=== PATIENT | male | born 1980 | race Caucasian/White ===

== ENCOUNTER 2016-10-30 05:42 | Emergency (ER) | payer SELFPAY ==
--- NOTE | 2016-10-30 07:15 | DIAGNOSTIC IMAGING REPORT ---
PROCEDURE: CT HEAD WITHOUT CONTRAST INDICATION: SEIZURE TECHNIQUE: Axial CT images were acquired through the head. Coronal and sagittal reformations were created. COMPARISON: None. FINDINGS: There is some motion at the base of the brain. No intracranial hemorrhage or extraaxial fluid collections. Ventricles are normal in size, shape and position. There is no mass, mass effect or midline shift. The manning-white matter differentiation is normal. There is no edema. The calvarium is intact. The paranasal sinuses and mastoid air cells are normally aerated. The extracranial soft tissues and orbits are normal. IMPRESSION: 1. No CT evidence of acute intracranial process. 2. Findings discussed with Dr. Peres at 07:[address] scans at this facility use dose modulation, iterative reconstruction, and/or weight-based dosing when appropriate to reduce radiation dose to as low as reasonably achievable.
--- NOTE | 2016-10-30 07:21 | ED CLINICAL REPORT ---
Clinical Report - Physicians/Mid Levels [facility] [address] [place] [address] 10/30/2016 5:44 Patient: JOANIE REYES II Time Seen: 05:51. Arrived- By private vehicle. Historian- patient and significant other. HISTORY OF PRESENT ILLNESS Chief Complaint: SEIZURE. This occurred just prior to arrival first noted about 3 - 4 months ago. Is no longer seizing. He has recovered. Not post-ictal in the emergency department. Seizure was witnessed. (significant other). Experienced repeated seizures (up to 5 seizures / day for 3 - 4 months according to his significant other). Seizure activity was brief and lasted seconds. Generalized motor activity observed (per his significant other). No incontinence, apnea noted, speech difficulty post-ictally, weakness post-ictally or numbness post-ictally. No headache post-ictally. Not obtunded post-ictally. Post-ictally has had confusion. No injuries noted. Has not recently been ill. There has been recent sleep deprivation. No alcohol recently. Seizure-like activity first noted by his girlfriend about 3 months ago. Pt admits to using Heroin and Meth. Per his significant other, there does not appear to be a temporal relationship between his illicit substance use / doses and the apparent seizures. Similar symptoms previously: Many times. Recent medical care: Not recently seen/assessed. REVIEW OF SYSTEMS No fever, chest pain, palpitations, difficulty breathing or sore throat. No abdominal pain, nausea, diarrhea, black stools or difficulty with urination. No skin rash, vomiting or bloody stools. All systems otherwise negative, except as recorded above. PAST HISTORY ( Problems: Anxiety Reaction. Depression. Asthma. Chronic Back Pain. Surgeries: Hand surgery.). Medications: None. Allergies: No Known Drug Allergy. SOCIAL HISTORY Smoker- current status unknown. Alcohol use. History of IV drug use: heroin, methamphetamines. He is homeless. ADDITIONAL NOTES The nursing notes have been reviewed. PHYSICAL EXAM Vital Signs: 10/30/2016 05:49 BP: 129/82. HR: 78. RR: 16. O2 saturation: 100%. Temp: 98.3 F. Pain level now: 0/10. Appearance: Alert. No acute distress. Eyes: Pupils equal, round and reactive to light. No nystagmus. ENT: Normal ENT inspection. Moist mucous membranes. Pharynx normal. Neck: Normal inspection. Neck supple. CVS: Normal heart rate and rhythm. Heart sounds normal. Pulses normal. Respiratory: No respiratory distress. Breath sounds normal. Abdomen: Soft and nontender. Back: Normal inspection. Skin: Skin warm and dry. Normal skin color. Normal skin turgor. Extremities: Extremities exhibit normal ROM. No lower extremity edema. Neuro: Alert. Oriented X 3. No seizure activity. Verbal response is not abnormal. Response to pain is not abnormal. No aphasia or dysphasia. Cranial nerves normal (as tested). No cerebellar findings. No motor deficit. No sensory deficit. Reflexes normal. Reflex exam: right biceps 2+, left biceps 2+, right patellar 2+, left patellar 2+, right Achilles 2+ and left Achilles 2+. LABS, X-RAYS, AND EKG EKG: EKG time: (06:04). Normal sinus rhythm. Rate: 70. Normal P waves. Normal GREGORIO. Normal QRS complex. Normal axis. Normal ST and T waves. The study has been interpreted contemporaneously by me. The EKG appears to be a good tracing. Rhythm Strip #1: Normal sinus rhythm. Regular rhythm. Narrow QRS complexes. No ectopy. CT Head: Normal study. No acute changes. No bony abnormalities, no hemorrhage, no intracranial mass, no midline shift and no hydrocephalus. No atrophy. Head CT performed without contrast. The study was independently viewed by me, interpreted by the radiologist and discussed with the radiologist. Laboratory Tests: CBC w Diff: (ANIA: 10/30/2016 05:58) ( MsgRcvd 10/30/2016 06:16) Final results Test Result Flag Units (Reference) WHITE BLOOD COUNT 7.6 K/uL (4.5-11.5) RED BLOOD COUNT 5.01 M/uL (4.50-5.90) HEMOGLOBIN 14.1 gm/dL (13.5-17.5) HEMATOCRIT 41.9 % (41.0-53.0) MEAN CELL VOLUME 84 fL (80-100) MEAN CORPUSCULAR HGB 28 pg (26-34) MEAN CORPUSCULAR HGB CONC 34 g/dL (31-37) RED CELL DISTRIBUTION WIDTH 15.2 H % (11.6-14.8) PLATELET COUNT 288 K/uL (150-400) NEUTROPHIL % 60.3 % (50-75) LYMPH % 27.5 % (25-40) MONO % 7.8 % (3-14) EOSINOPHIL % 3.2 % (0-4) BASOPHIL % 1.2 % (0-2) PT with INR: (ANIA: 10/30/2016 06:18) ( [facility] 10/30/2016 06:37) Final results Test Result Flag Units (Reference) INR 0.9 (0.8-1.2) Low Intensity Therapy: INR 1.5-2.0 PT range 18.5-23.1Mod.Intensity Therapy: INR 2.0-3.0 PT range 23.1-31.5High Intensity Therapy: INR 2.5-3.5 PT range 27.4-35.5High Intensity Therapy 2: INR 3.0-4.0 PT range 31.5-39.3 D-DIMER QUANTITATIVE 0.28 ug/mLFEU (0.27-0.52) The primary value of this quantitative assay relates toits negative predictive value (i.e. exclusion) of pulmonaryembolism/deep vein thrombosis/DIC.Elevated levels of d-dimer may also occur with:, age, cancer, inflammation, liver disease,post-op, infection, hematoma, coronary disease, peripheralarteriopathy, bleeding disorders and thrombolytic treatment.Results should be correlated with other clinical andradiological data.Testing Methodology: Latex Immunoassay BNP: (ANIA: 10/30/2016 05:58) ( [facility] 10/30/2016 06:33) Final results Test Result Flag Units (Reference) B-TYPE NATRIURETIC PEPTIDE < 5.0 L pg/ml (5-100) CHEM 13 PANEL: (ANIA: 10/30/2016 05:58) ( [facility] 10/30/2016 06:37) Final results Test Result Flag Units (Reference) GLUCOSE 95 mg/dL (70-110) BUN 15 mg/dL (7-18) CREATININE 0.7 mg/dL (0.6-1.3) Estimated GFR >60 mL/min Estimated GFR- >60 mL/min Note: Persistent reduction over 3 months in eGFR<60 mL/min/1.73 m2 defines CKD. Patients with eGFR values>=60 mL/min/1.73 m2 may also have CKD if evidence ofpersistent proteinuria. Additional information may be foundat www.kidney.org. SODIUM 140 mmol/L (136-145) POTASSIUM 4.1 mmol/L (3.5-5.1) CHLORIDE 104 mmol/L (98-107) CARBON DIOXIDE 31 mmol/L (21-32) CALCIUM 9.3 mg/dL (8.5-10.1) TOTAL PROTEIN 8.1 g/dL (6.4-8.2) ALBUMIN 3.7 g/dL (3.3-5.0) BILIRUBIN, TOTAL 0.5 mg/dL (0.0-1.0) ALKALINE PHOSPHATASE 125 H U/L (46-116) AST (SGOT) 30 U/L (15-37) ALT (SGPT) 80 H U/L (12-78) MAGNESIUM 2.1 mg/dL (1.8-2.4) AMYLASE 26 U/L (25-115) CPK 99 U/L (24-260) TROPONIN I <0.05 L ng/mL (0.00-1.5) TROPONIN REFERENCE RANGE:<0.1 NEGATIVE0.1-1.5 INDETERMINANT>1.5 POSITIVE ETHYL ALCOHOL <3 L mg/dL (3-10) THYROID STIMULATING HORMONE 0.824 uIU/mL (0.34-3.74) . Pulse Oximetry: 10/30/2016 05:49 O2 saturation: 100%. (FIO2 - room air). Interpretation: normal. PROGRESS AND PROCEDURES Course of Care: Normal Saline 1 liter IVPB given. Ativan 1mg IVP given. Patient is stable. The patient's symptoms are now gone. Pt may have a new onset seizure disorder. First noted about 4 months prior per S.O. Currently labs and CT are unremarkable. It is possible that his illicit drugs are causing seizures, but may also have episodes of hypoxia / diminished respiratory drive when he uses heroin causing his seizure / seizure-like illness. He has never been evaluated for seizures in the past. He will need a pcp and hopefully expedited neurology work up with EEG. Patient/family counseled. Old ED records reviewed. Disposition: Discharged. Condition: stable and improved. CLINICAL IMPRESSION New onset generalized seizure associated with drugs. History of poorly controlled epilepsy. Chronic substance abuse- tobacco (cigarettes), marijuana, heroin, methamphetamines with perceptual disturbance. Abnormal liver function test: ALT/SGPT and alkaline phosphatase. INSTRUCTIONS Drink plenty of fluids. Warnings: Further evaluation is necessary in order to recheck abnormal lab, obtain test results, conduct further tests and assess the possibility of serious illness. It is very important to follow up with a physician. SEDATIVE MEDICATION: You were given sedative medication during your visit. Do not drive or operate dangerous machinery. TAKE SEIZURE MEDICATION INSTRUCTED. GENERAL WARNINGS: Return or contact your physician immediately if your condition worsens or changes unexpectedly, if not improving as expected, or if other problems arise. Prescription Medications: Keppra 500 mg: take 1 tablet orally every 12 hours. Dispense thirty (30). No refills. Substitution is permissible. Follow-up: Follow up with a neurologist- as recommended by your primary care physician. Follow-up with: [facility], , , [address] [place] [address], , [place], ; [facility], , , [facility] [address] [place] [address]; [facility], , [address] [place] [address] Follow up in about two days. Call for the next available appointment. (Electronically signed by Juvenal Peres DO 10/30/2016 8:51)
--- NOTE | 2016-10-30 07:21 | ED CLINICAL REPORT ---
Clinical Report - Physicians/Mid Levels [facility] [address] [place] [address] 10/30/2016 5:44 Patient: JOANIE REYES II Time Seen: 05:51. Arrived- By private vehicle. Historian- patient and significant other. HISTORY OF PRESENT ILLNESS Chief Complaint: SEIZURE. This occurred just prior to arrival first noted about 3 - 4 months ago. Is no longer seizing. He has recovered. Not post-ictal in the emergency department. Seizure was witnessed. (significant other). Experienced repeated seizures (up to 5 seizures / day for 3 - 4 months according to his significant other). Seizure activity was brief and lasted seconds. Generalized motor activity observed (per his significant other). No incontinence, apnea noted, speech difficulty post-ictally, weakness post-ictally or numbness post-ictally. No headache post-ictally. Not obtunded post-ictally. Post-ictally has had confusion. No injuries noted. Has not recently been ill. There has been recent sleep deprivation. No alcohol recently. Seizure-like activity first noted by his girlfriend about 3 months ago. Pt admits to using Heroin and Meth. Per his significant other, there does not appear to be a temporal relationship between his illicit substance use / doses and the apparent seizures. Similar symptoms previously: Many times. Recent medical care: Not recently seen/assessed. REVIEW OF SYSTEMS No fever, chest pain, palpitations, difficulty breathing or sore throat. No abdominal pain, nausea, diarrhea, black stools or difficulty with urination. No skin rash, vomiting or bloody stools. All systems otherwise negative, except as recorded above. PAST HISTORY ( Problems: Anxiety Reaction. Depression. Asthma. Chronic Back Pain. Surgeries: Hand surgery.). Medications: None. Allergies: No Known Drug Allergy. SOCIAL HISTORY Smoker- current status unknown. Alcohol use. History of IV drug use: heroin, methamphetamines. He is homeless. ADDITIONAL NOTES The nursing notes have been reviewed. PHYSICAL EXAM Vital Signs: 10/30/2016 05:49 BP: 129/82. HR: 78. RR: 16. O2 saturation: 100%. Temp: 98.3 F. Pain level now: 0/10. Appearance: Alert. No acute distress. Eyes: Pupils equal, round and reactive to light. No nystagmus. ENT: Normal ENT inspection. Moist mucous membranes. Pharynx normal. Neck: Normal inspection. Neck supple. CVS: Normal heart rate and rhythm. Heart sounds normal. Pulses normal. Respiratory: No respiratory distress. Breath sounds normal. Abdomen: Soft and nontender. Back: Normal inspection. Skin: Skin warm and dry. Normal skin color. Normal skin turgor. Extremities: Extremities exhibit normal ROM. No lower extremity edema. Neuro: Alert. Oriented X 3. No seizure activity. Verbal response is not abnormal. Response to pain is not abnormal. No aphasia or dysphasia. Cranial nerves normal (as tested). No cerebellar findings. No motor deficit. No sensory deficit. Reflexes normal. Reflex exam: right biceps 2+, left biceps 2+, right patellar 2+, left patellar 2+, right Achilles 2+ and left Achilles 2+. LABS, X-RAYS, AND EKG EKG: EKG time: (06:04). Normal sinus rhythm. Rate: 70. Normal P waves. Normal GREGORIO. Normal QRS complex. Normal axis. Normal ST and T waves. The study has been interpreted contemporaneously by me. The EKG appears to be a good tracing. Rhythm Strip #1: Normal sinus rhythm. Regular rhythm. Narrow QRS complexes. No ectopy. CT Head: Normal study. No acute changes. No bony abnormalities, no hemorrhage, no intracranial mass, no midline shift and no hydrocephalus. No atrophy. Head CT performed without contrast. The study was independently viewed by me, interpreted by the radiologist and discussed with the radiologist. Laboratory Tests: CBC w Diff: (ANIA: 10/30/2016 05:58) ( MsgRcvd 10/30/2016 06:16) Final results Test Result Flag Units (Reference) WHITE BLOOD COUNT 7.6 K/uL (4.5-11.5) RED BLOOD COUNT 5.01 M/uL (4.50-5.90) HEMOGLOBIN 14.1 gm/dL (13.5-17.5) HEMATOCRIT 41.9 % (41.0-53.0) MEAN CELL VOLUME 84 fL (80-100) MEAN CORPUSCULAR HGB 28 pg (26-34) MEAN CORPUSCULAR HGB CONC 34 g/dL (31-37) RED CELL DISTRIBUTION WIDTH 15.2 H % (11.6-14.8) PLATELET COUNT 288 K/uL (150-400) NEUTROPHIL % 60.3 % (50-75) LYMPH % 27.5 % (25-40) MONO % 7.8 % (3-14) EOSINOPHIL % 3.2 % (0-4) BASOPHIL % 1.2 % (0-2) PT with INR: (ANIA: 10/30/2016 06:18) ( [facility] 10/30/2016 06:37) Final results Test Result Flag Units (Reference) INR 0.9 (0.8-1.2) Low Intensity Therapy: INR 1.5-2.0 PT range 18.5-23.1Mod.Intensity Therapy: INR 2.0-3.0 PT range 23.1-31.5High Intensity Therapy: INR 2.5-3.5 PT range 27.4-35.5High Intensity Therapy 2: INR 3.0-4.0 PT range 31.5-39.3 D-DIMER QUANTITATIVE 0.28 ug/mLFEU (0.27-0.52) The primary value of this quantitative assay relates toits negative predictive value (i.e. exclusion) of pulmonaryembolism/deep vein thrombosis/DIC.Elevated levels of d-dimer may also occur with:, age, cancer, inflammation, liver disease,post-op, infection, hematoma, coronary disease, peripheralarteriopathy, bleeding disorders and thrombolytic treatment.Results should be correlated with other clinical andradiological data.Testing Methodology: Latex Immunoassay BNP: (ANIA: 10/30/2016 05:58) ( [facility] 10/30/2016 06:33) Final results Test Result Flag Units (Reference) B-TYPE NATRIURETIC PEPTIDE < 5.0 L pg/ml (5-100) CHEM 13 PANEL: (ANIA: 10/30/2016 05:58) ( [facility] 10/30/2016 06:37) Final results Test Result Flag Units (Reference) GLUCOSE 95 mg/dL (70-110) BUN 15 mg/dL (7-18) CREATININE 0.7 mg/dL (0.6-1.3) Estimated GFR >60 mL/min Estimated GFR- >60 mL/min Note: Persistent reduction over 3 months in eGFR<60 mL/min/1.73 m2 defines CKD. Patients with eGFR values>=60 mL/min/1.73 m2 may also have CKD if evidence ofpersistent proteinuria. Additional information may be foundat www.kidney.org. SODIUM 140 mmol/L (136-145) POTASSIUM 4.1 mmol/L (3.5-5.1) CHLORIDE 104 mmol/L (98-107) CARBON DIOXIDE 31 mmol/L (21-32) CALCIUM 9.3 mg/dL (8.5-10.1) TOTAL PROTEIN 8.1 g/dL (6.4-8.2) ALBUMIN 3.7 g/dL (3.3-5.0) BILIRUBIN, TOTAL 0.5 mg/dL (0.0-1.0) ALKALINE PHOSPHATASE 125 H U/L (46-116) AST (SGOT) 30 U/L (15-37) ALT (SGPT) 80 H U/L (12-78) MAGNESIUM 2.1 mg/dL (1.8-2.4) AMYLASE 26 U/L (25-115) CPK 99 U/L (24-260) TROPONIN I <0.05 L ng/mL (0.00-1.5) TROPONIN REFERENCE RANGE:<0.1 NEGATIVE0.1-1.5 INDETERMINANT>1.5 POSITIVE ETHYL ALCOHOL <3 L mg/dL (3-10) THYROID STIMULATING HORMONE 0.824 uIU/mL (0.34-3.74) . Pulse Oximetry: 10/30/2016 05:49 O2 saturation: 100%. (FIO2 - room air). Interpretation: normal. PROGRESS AND PROCEDURES Course of Care: Normal Saline 1 liter IVPB given. Ativan 1mg IVP given. Patient is stable. The patient's symptoms are now gone. Pt may have a new onset seizure disorder. First noted about 4 months prior per S.O. Currently labs and CT are unremarkable. It is possible that his illicit drugs are causing seizures, but may also have episodes of hypoxia / diminished respiratory drive when he uses heroin causing his seizure / seizure-like illness. He has never been evaluated for seizures in the past. He will need a pcp and hopefully expedited neurology work up with EEG. Patient/family counseled. Old ED records reviewed. Disposition: Discharged. Condition: stable and improved. CLINICAL IMPRESSION New onset generalized seizure associated with drugs. History of poorly controlled epilepsy. Chronic substance abuse- tobacco (cigarettes), marijuana, heroin, methamphetamines with perceptual disturbance. Abnormal liver function test: ALT/SGPT and alkaline phosphatase. INSTRUCTIONS Drink plenty of fluids. Warnings: Further evaluation is necessary in order to recheck abnormal lab, obtain test results, conduct further tests and assess the possibility of serious illness. It is very important to follow up with a physician. SEDATIVE MEDICATION: You were given sedative medication during your visit. Do not drive or operate dangerous machinery. TAKE SEIZURE MEDICATION INSTRUCTED. GENERAL WARNINGS: Return or contact your physician immediately if your condition worsens or changes unexpectedly, if not improving as expected, or if other problems arise. Prescription Medications: Keppra 500 mg: take 1 tablet orally every 12 hours. Dispense thirty (30). No refills. Substitution is permissible. Follow-up: Follow up with a neurologist- as recommended by your primary care physician. Follow-up with: [facility], , , [address] [place] [address], , [place], ; [facility], , , [facility] [address] [place] [address]; [facility], , [address] [place] [address] Follow up in about two days. Call for the next available appointment. (Electronically signed by Juvenal Peres DO 10/30/2016 8:51)
--- NOTE | 2016-10-30 07:21 | ED ORDER SUMMARY ---
..... Patient: JOANIE REYES II OrderSheet [facility] VisitID: [id number] [place] [address] 36y, M Registration Date/Time: 10/30/2016 ORDER SHEET Weight: 53.5 kg (stated) Allergies: No Known Drug Allergy GENERAL ORDERS: CT Head wo Cont Urgent (05:55 10/30/2016 PHutchinson DO) (Ack 6:06 CHategekimana) (Ack 6:07 IJurca ER Tech1) (8:42 JSanders R.N.) Brake Operator Sheet Metal (Continuous) (05:56 10/30/2016 PHutchinson DO) (5:59 JRomanelli R.N.) UA-Culture if indicated Urgent (05:56 10/30/2016 PHutchinson DO) (Ack 6:07 CHategekimana) (Ack 6:07 IJurca ER Tech1) (8:43 JSanders R.N.) Cardiac Panel Stat (05:56 10/30/2016 PHutchinson DO) (6:02 JRomanelli R.N.) BNP Urgent (05:56 10/30/2016 PHutchinson DO) (6:02 JRomanelli R.N.) D-Dimer Urgent (05:56 10/30/2016 PHutchinson DO) (6:02 JRomanelli R.N.) Amylase Urgent (05:56 10/30/2016 PHutchinson DO) (6:02 JRomanelli R.N.) PT with INR Urgent (05:56 10/30/2016 PHutchinson DO) (6:03 JRomanelli R.N.) TSH Urgent (05:56 10/30/2016 PHutchinson DO) (6:03 JRomanelli R.N.) Ethyl Alcohol Urgent (05:56 10/30/2016 PHutchinson DO) (6:03 JRomanelli R.N.) Urine Drug Screen Urgent (05:56 10/30/2016 PHutchinson DO) (Ack 6:06 CHategekimana) (Ack 6:07 IJurca ER Tech1) (8:43 JSanders R.N.) Oxygen (2 L/min) (NC) (05:56 10/30/2016 [facility]) (5:59 omanelli R.N.) Pulse oximeter (05:56 10/30/2016 [facility]) (6:02 omanelli R.N.) EKG - ER Stat (05:56 10/30/2016 [facility]) (6:02 omanelli R.N.) Vitals (05:56 10/30/2016 [facility]) (6:02 JRomanelli R.N.) MEDICATION ORDERS: IV FLUIDS: IV NS : initial bolus 1000 mL (1000 mL/hr), then 250 mL/hr for X4 (NOW) (05:56 10/30/2016 [facility]) (Ack 5:56 Janiceier R.N.) (6:02 omanelli R.N.) Ativan IV 1 mg (HIGH ALERT MEDICATION, NOW) (05:56 10/30/2016 [facility]) (Ack 5:56 Brayan R.N.) (6:13 DDavis R.N.) ORDER SHEET NOTES: [Electronically signed by Angela East R.N. (08:49 10/30/2016)] [Electronically signed by Juvenal Peres DO (08:51 10/30/2016)] [Electronically locked/signed by Angela East R.N. (08:49 10/30/2016)]
--- NOTE | 2016-10-30 07:21 | ED NURSING NOTES ---
Clinical Report - Nurses [facility] [address] [place] [address] 10/30/2016 5:44 [id number] Triage time 05:50 Oct 30 2016. Acuity: LEVEL 3. Chief Complaint: POSSIBLE SEIZURE. Alert. MARTINE COMA SCORE: Martine Coma Scale: 15- eyes open spontaneously (4); best verbal response- oriented x 4 (5); best motor response- obeys commands (6). --05:57 Ronnell Foreman R.N. 05:49 10/30/16. BP: 129/82. HR: 78. RR: 16. O2 saturation: 100% on room air. Temp: 98.3 F. Pain level now: 0/10. --05:57 Ronnell Foreman R.N. Weight: 53.5 kg stated. Height/Length: 65 inches Per Patient. BMI: 19.7. --05:53 Ronnell Foreman R.N. Medications None. --05:54 Ronnell Foreman R.N. Allergies No Known Drug Allergy. --05:54 Ronnell Foreman R.N. Medication/allergy information source: the patient. --05:57 Ronnell Foreman R.N. History Arrived by private vehicle. Historian: patient. Accompanied by friend. ( Seizure-like activity first noted by his girlfriend about 3 months ago. Pt admits to using Heroin and Meth..). This occurred just prior to arrival and today. No injuries. Treatment TELEPHONE CLERKS SUPERVISOR: None. PAST MEDICAL HX: Hypertension. Immunizations: up-to-date. SOCIAL HX: Heavy tobacco smoker (cigarette)- less than 1 pack per day. History of drug use: heroin, marijuana. No alcohol use. No infectious disease exposure. ABUSE ASSESSMENT: No report of abuse. FALL RISK ASSESSMENT: Fall risk assessment completed. No fall risk identified. NUTRITIONAL RISK ASSESSMENT: The nutritional risk assessment revealed no deficiencies. FUNCTIONAL ASSESSMENT: Functional assessment: no impairments noted. LEARNING NEEDS ASSESSMENT: The learning needs assessment revealed no barriers. SKIN INTEGRITY ASSESSMENT: Skin integrity risk assessment completed. No skin integrity risk identified. --05:57 Ronnell Foreman R.N. PROBLEMS: Abscess. Skin Rash. Anxiety Reaction. Depression. Immunizations. Asthma. Peptic Ulcer Disease. Chronic Back Pain. --05:55 Ronnell Foreman R.N. Cellulitis [RuleOut]. --05:55 Ronnell Foreman R.N. ADDITIONAL SURGERIES: Hand surgery. --05:55 Ronnell Foreman R.N. Interventions ID band on patient. To treatment room. --05:57 Ronnell Foreman R.N. PHYSICAL ASSESSMENT Ambulatory to room. GENERAL / NEURO / PSYCH: Alert. Oriented X 4. Appears in pain. Speech within normal limits. Patient appears well-nourished. HEENT: No facial asymmetry noted. Mucous membranes are pink. RESPIRATORY: Respirations not labored. CVS: Normal sinus rhythm noted. Capillary refill less than 2 seconds. GI / : Abdomen soft. Bowel sounds within normal limits. SKIN: Skin is warm and dry. Normal skin turgor. --05:57 Ronnell Foreman R.N. NURSING PROGRESS NOTES Patient gowned. Reassurance given. Patient identifiers checked. Call light placed in reach. Side rails up. Bed placed in lowest position. Brakes of bed on. Patient ready for evaluation- chart flagged and ED physician notified. --05:58 Ronnell Foreman R.N. 05:55 10/30/2016 Site #1 started via IV in the left antecubital space with an 20g angiocath, with aseptic technique and good blood return; one attempt. Blood drawn: rainbow set. Labeled in the presence of the patient and sent to the lab. Saline lock flushed with 10 mL saline (start by LANI Riggins). --06:01 Ronnell Foreman R.N. 06:02 10/30/2016 Started bag #1 1000 mL IV Fluids IV NS (Saline); at 1000 mL/hr over 60 minute(s) via site #1 via IV pump. Allergies verified and confirmed 5 rights. IV patency established. IV site checked: no pain, redness, or swelling. IV flushed thoroughly pre- and post-medication administration. --06:02 Ronnell Foreman R.N. EKG time: (0604 AM). EKG was ordered, performed by a tech and shown to the ED physician. --06:05 Lily Nelson 06:11 10/30/2016 Ativan (LORazepam) IVP 1 mg given over 2 minute(s) via site #1. Allergies verified, confirmed 5 rights and sedative warning given to the patient. IV patency established. IV site checked: no pain, redness, or swelling. IV flushed thoroughly pre- and post-medication administration. --06:13 Scott Magana R.N. ( ED DIRECTOR OF CORPORATE STRATEGY tried to wake patient up to get best time and [facility] location to schedule a follow up appointment. Patient did not wake up. Female manager functional in room who identified herself as the girlfriend said "[place]" as best location. [facility] called [facility] on [place] at [place] at 8:07am. Answering service said this was the emergency line and clinic will be open at 9am. Patient given number to call for a follow up appointment.). --08:36 Makayla Altamirano. DISPOSITION / DISCHARGE Condition at departure: improved. No learning barriers present. Discharge instructions provided and reviewed with the spouse. Reviewed medication(s) side effects, precautions and dosing information. Prescription(s) given to the manager functional. Spouse verbalized understanding. Written instructions provided in Slovak. The patient was discharged by the physician. He was discharged home and accompanied by manager functional. He left the Emergency Department in a wheelchair and via bus. Drapery Cutter Machine driving. ( Patient sleeping, aroused with pain. All instructions given to manager functional.). --08:16 Angela East R.N. 08:10 10/30/16. BP: 108/68 (regular adult cuff) taken on the right arm, while lying. HR: 80. RR: 16 (regular). O2 saturation: 95% on room air. Temp: unable to obtain. Pain level now: 0/10. Additional comments: Patient will not open mouth for oral temp. --08:16 Angela East R.N. Departure time: 08:44 Oct 30 2016. --08:44 Angela East R.N. Locked/Released at 10/30/2016 8:49 by Angela East R.N.
--- NOTE | 2016-10-30 07:21 | ED ORDER SUMMARY ---
..... Patient: JOANIE REYES II [facility] VisitID: [id number] [place] [address] 36y, M Registration Date/Time: 10/30/2016 ORDER SHEET Weight: 53.5 kg (stated) Allergies: No Known Drug Allergy GENERAL ORDERS: CT Head wo Cont Urgent (05:55 10/30/2016 PHutchinson DO) (Ack 6:06 CHategekimana) (Ack 6:07 IJurca ER Tech1) (8:42 JSanders R.N.) Hazardous Materials Analyst (Continuous) (05:56 10/30/2016 PHutchinson DO) (5:59 JRomanelli R.N.) UA-Culture if indicated Urgent (05:56 10/30/2016 PHutchinson DO) (Ack 6:07 CHategekimana) (Ack 6:07 IJurca ER Tech1) (8:43 JSanders R.N.) Cardiac Panel Stat (05:56 10/30/2016 PHutchinson DO) (6:02 JRomanelli R.N.) BNP Urgent (05:56 10/30/2016 PHutchinson DO) (6:02 JRomanelli R.N.) D-Dimer Urgent (05:56 10/30/2016 PHutchinson DO) (6:02 JRomanelli R.N.) Amylase Urgent (05:56 10/30/2016 PHutchinson DO) (6:02 JRomanelli R.N.) PT with INR Urgent (05:56 10/30/2016 PHutchinson DO) (6:03 JRomanelli R.N.) TSH Urgent (05:56 10/30/2016 PHutchinson DO) (6:03 JRomanelli R.N.) Ethyl Alcohol Urgent (05:56 10/30/2016 PHutchinson DO) (6:03 JRomanelli R.N.) Urine Drug Screen Urgent (05:56 10/30/2016 PHutchinson DO) (Ack 6:06 CHategekimana) (Ack 6:07 IJurca ER Tech1) (8:43 JSanders R.N.) Oxygen (2 L/min) (NC) (05:56 10/30/2016 [facility]) (5:59 omanelli R.N.) Pulse oximeter (05:56 10/30/2016 [facility]) (6:02 omanelli R.N.) EKG - ER Stat (05:56 10/30/2016 [facility]) (6:02 omanelli R.N.) Vitals (05:56 10/30/2016 [facility]) (6:02 JRomanelli R.N.) MEDICATION ORDERS: IV FLUIDS: IV NS : initial bolus 1000 mL (1000 mL/hr), then 250 mL/hr for X4 (NOW) (05:56 10/30/2016 [facility]) (Ack 5:56 Janiceier R.N.) (6:02 omanelli R.N.) Ativan IV 1 mg (HIGH ALERT MEDICATION, NOW) (05:56 10/30/2016 [facility]) (Ack 5:56 Brayan R.N.) (6:13 DDavis R.N.) ORDER SHEET NOTES: [Electronically signed by Angela East R.N. (08:49 10/30/2016)] [Electronically signed by Juvenal Peres DO (08:51 10/30/2016)] [Electronically locked/signed by Angela East R.N. (08:49 10/30/2016)]
--- NOTE | 2016-10-30 07:21 | ED NURSING NOTES ---
Clinical Report - Nurses [facility] [address] [place] [address] 10/30/2016 5:44 [id number] Triage time 05:50 Oct 30 2016. Acuity: LEVEL 3. Chief Complaint: POSSIBLE SEIZURE. Alert. MARTINE COMA SCORE: Martine Coma Scale: 15- eyes open spontaneously (4); best verbal response- oriented x 4 (5); best motor response- obeys commands (6). --05:57 Ronnell Foreman R.N. 05:49 10/30/16. BP: 129/82. HR: 78. RR: 16. O2 saturation: 100% on room air. Temp: 98.3 F. Pain level now: 0/10. --05:57 Ronnell Foreman R.N. Weight: 53.5 kg stated. Height/Length: 65 inches Per Patient. BMI: 19.7. --05:53 Ronnell Foreman R.N. Medications None. --05:54 Ronnell Foreman R.N. Allergies No Known Drug Allergy. --05:54 Ronnell Foreman R.N. Medication/allergy information source: the patient. --05:57 Ronnell Foreman R.N. History Arrived by private vehicle. Historian: patient. Accompanied by friend. ( Seizure-like activity first noted by his girlfriend about 3 months ago. Pt admits to using Heroin and Meth..). This occurred just prior to arrival and today. No injuries. Treatment SOFTWARE ENGINEERING PROJECT MANAGER: None. PAST MEDICAL HX: Hypertension. Immunizations: up-to-date. SOCIAL HX: Heavy tobacco smoker (cigarette)- less than 1 pack per day. History of drug use: heroin, marijuana. No alcohol use. No infectious disease exposure. ABUSE ASSESSMENT: No report of abuse. FALL RISK ASSESSMENT: Fall risk assessment completed. No fall risk identified. NUTRITIONAL RISK ASSESSMENT: The nutritional risk assessment revealed no deficiencies. FUNCTIONAL ASSESSMENT: Functional assessment: no impairments noted. LEARNING NEEDS ASSESSMENT: The learning needs assessment revealed no barriers. SKIN INTEGRITY ASSESSMENT: Skin integrity risk assessment completed. No skin integrity risk identified. --05:57 Ronnell Foreman R.N. PROBLEMS: Abscess. Skin Rash. Anxiety Reaction. Depression. Immunizations. Asthma. Peptic Ulcer Disease. Chronic Back Pain. --05:55 Ronnell Foreman R.N. Cellulitis [RuleOut]. --05:55 Ronnell Foreman R.N. ADDITIONAL SURGERIES: Hand surgery. --05:55 Ronnell Foreman R.N. Interventions ID band on patient. To treatment room. --05:57 Ronnell Foreman R.N. PHYSICAL ASSESSMENT Ambulatory to room. GENERAL / NEURO / PSYCH: Alert. Oriented X 4. Appears in pain. Speech within normal limits. Patient appears well-nourished. HEENT: No facial asymmetry noted. Mucous membranes are pink. RESPIRATORY: Respirations not labored. CVS: Normal sinus rhythm noted. Capillary refill less than 2 seconds. GI / : Abdomen soft. Bowel sounds within normal limits. SKIN: Skin is warm and dry. Normal skin turgor. --05:57 Ronnell Foreman R.N. NURSING PROGRESS NOTES Patient gowned. Reassurance given. Patient identifiers checked. Call light placed in reach. Side rails up. Bed placed in lowest position. Brakes of bed on. Patient ready for evaluation- chart flagged and ED physician notified. --05:58 Ronnell Foreman R.N. 05:55 10/30/2016 Site #1 started via IV in the left antecubital space with an 20g angiocath, with aseptic technique and good blood return; one attempt. Blood drawn: rainbow set. Labeled in the presence of the patient and sent to the lab. Saline lock flushed with 10 mL saline (start by LANI Riggins). --06:01 Ronnell Foreman R.N. 06:02 10/30/2016 Started bag #1 1000 mL IV Fluids IV NS (Saline); at 1000 mL/hr over 60 minute(s) via site #1 via IV pump. Allergies verified and confirmed 5 rights. IV patency established. IV site checked: no pain, redness, or swelling. IV flushed thoroughly pre- and post-medication administration. --06:02 Ronnell Foreman R.N. EKG time: (0604 AM). EKG was ordered, performed by a tech and shown to the ED physician. --06:05 Lily Nelson 06:11 10/30/2016 Ativan (LORazepam) IVP 1 mg given over 2 minute(s) via site #1. Allergies verified, confirmed 5 rights and sedative warning given to the patient. IV patency established. IV site checked: no pain, redness, or swelling. IV flushed thoroughly pre- and post-medication administration. --06:13 Scott Magana R.N. ( ED SAWMILLING OPERATOR tried to wake patient up to get best time and [facility] location to schedule a follow up appointment. Patient did not wake up. Female information security risk analyst in room who identified herself as the girlfriend said "[place], on [place]" as best location. [facility] called [facility] on [address] at [place] at 8:07am. Answering service said this was the emergency line and clinic will be open at 9am. Patient given number to call for a follow up appointment.). --08:36 Makayla Altamirano. DISPOSITION / DISCHARGE Condition at departure: improved. No learning barriers present. Discharge instructions provided and reviewed with the spouse. Reviewed medication(s) side effects, precautions and dosing information. Prescription(s) given to the information security risk analyst. Spouse verbalized understanding. Written instructions provided in Ukrainian. The patient was discharged by the physician. He was discharged home and accompanied by information security risk analyst. He left the Emergency Department in a wheelchair and via bus. Human Resources Leader driving. ( Patient sleeping, aroused with pain. All instructions given to information security risk analyst.). --08:16 Angela East R.N. 08:10 10/30/16. BP: 108/68 (regular adult cuff) taken on the right arm, while lying. HR: 80. RR: 16 (regular). O2 saturation: 95% on room air. Temp: unable to obtain. Pain level now: 0/10. Additional comments: Patient will not open mouth for oral temp. --08:16 Angela East R.N. Departure time: 08:44 Oct 30 2016. --08:44 Angela East R.N. Locked/Released at 10/30/2016 8:49 by Angela East R.N.
--- NOTE | 2016-10-30 08:51 | ED DISCHARGE INSTRUCTIONS ---
Patient: JOANIE REYES II General Instructions [facility] VisitID: [id number] [address] [place] [address] 36y, M Registration Date/Time: 10/30/2016 New onset generalized seizure associated with drugs. History of poorly controlled epilepsy. Chronic substance abuse- tobacco (cigarettes), marijuana, heroin, methamphetamines with perceptual disturbance. Abnormal liver function test: ALT/SGPT and alkaline phosphatase. INSTRUCTIONS Drink plenty of fluids. Warnings: Further evaluation is necessary in order to recheck abnormal lab, obtain test results, conduct further tests and assess the possibility of serious illness. It is very important to follow up with a physician. SEDATIVE MEDICATION: You were given sedative medication during your visit. Do not drive or operate dangerous machinery. TAKE SEIZURE MEDICATION INSTRUCTED. GENERAL WARNINGS: Return or contact your physician immediately if your condition worsens or changes unexpectedly, if not improving as expected, or if other problems arise. Prescription Medications: Keppra 500 mg: take 1 tablet orally every 12 hours. Dispense thirty (30). No refills. Substitution is permissible. Follow-up: Follow up with a neurologist- as recommended by your primary care physician. Follow-up with: [facility], , , [address] [place] [address], , [place], ; [facility], , , [address], [place] [address]; [facility], [facility], , [address] [place] [address] Follow up in about two days. Call for the next available appointment. ADDITIONAL INFORMATION Seizure:New Onset [Unknown Cause, Adult] You have had a seizure today. This results from a burst of electrical activity in the brain. A seizure can be due to many causes. It is often not possible to determine the exact cause of a seizure from a single exam and further testing may be needed. Having one seizure does not mean that you will continue to have seizures. However, until the cause of your seizure is known, it is best to assume that another seizure is possible. Home Care: For This Seizure: Since seizures are not predictable, you must avoid doing anything that might cause danger to you or others if you have another one. Therefore, do not drive a car, ride a bike or operate dangerous equipment, do not take a bath alone (use a shower instead), and do not swim alone until your doctor says that you are no longer in danger of having another seizure. Tell your close friends and relatives about your seizure and teach them what to do for you if it happens again. If you were prescribed a medicine to prevent seizures, take it exactly as directed. It does not work when taken on an "as needed" basis. Missing doses will increase the risk of having another seizure. For Future Seizures: If You Are Alone: If you feel a seizure coming on, the best thing to do is to lie down on a bed or on the floor with something soft under your head. Lie on your side, not on your back. This will prevent falling and permit drainage of fluid from the mouth to prevent choking. Be sure that you are clear of any objects that might injure you during the seizure. Call for help (911) if there is time. If Someone Is With You: If someone is with you before the seizure, they should help you get in a safe position and call for help (911). They should not try to force anything in your mouth once the seizure has begun. Doing this may cause injury to your teeth or jaw. After a seizure, you may be drowsy or confused. The person should remain with you until you are fully awake again. They should not offer anything to eat or drink during that time. Call 911 or go to the emergency department for further evaluation. Follow Up with your doctor as directed by our staff. Additional tests (brain wave tests or brain scans) may be ordered to help determine the cause of your seizure. Note: For the safety of yourself and others on the road, certain states require that the treating doctor inform the Public Health Department of any adult who is treated for a seizure and is at risk of further seizures. In this case, the Department of Motor Vehicles (DMV) will be notified and a restriction will be placed on your drivers license until a doctor gives you medical clearance to drive again. Contact your treating doctor to find out if your state requires the reporting of patients with a seizures condition. Get Prompt Medical Attention if any of the following occur: Another seizure Fever over 100.4F (38.0C) Unusual irritability, drowsiness or confusion Worsening headache or neck pain You have been given the following additional information: Seizure, New Onset, Unk Cause [Adult] (Electronically signed by Juvenal Peres DO 10/30/2016 8:51)
--- NOTE | 2016-10-30 08:51 | ED DISCHARGE INSTRUCTIONS ---
Patient: JOANIE REYES II General Instructions [facility] VisitID: [id number] [address] [place] [address] 36y, M Registration Date/Time: 10/30/2016 New onset generalized seizure associated with drugs. History of poorly controlled epilepsy. Chronic substance abuse- tobacco (cigarettes), marijuana, heroin, methamphetamines with perceptual disturbance. Abnormal liver function test: ALT/SGPT and alkaline phosphatase. INSTRUCTIONS Drink plenty of fluids. Warnings: Further evaluation is necessary in order to recheck abnormal lab, obtain test results, conduct further tests and assess the possibility of serious illness. It is very important to follow up with a physician. SEDATIVE MEDICATION: You were given sedative medication during your visit. Do not drive or operate dangerous machinery. TAKE SEIZURE MEDICATION INSTRUCTED. GENERAL WARNINGS: Return or contact your physician immediately if your condition worsens or changes unexpectedly, if not improving as expected, or if other problems arise. Prescription Medications: Keppra 500 mg: take 1 tablet orally every 12 hours. Dispense thirty (30). No refills. Substitution is permissible. Follow-up: Follow up with a neurologist- as recommended by your primary care physician. Follow-up with: [facility], , , [address] [place] [address], , [place], ; [facility], , , [address], [place] [address]; [facility], [facility], , [address] [place] [address] Follow up in about two days. Call for the next available appointment. ADDITIONAL INFORMATION Seizure:New Onset [Unknown Cause, Adult] You have had a seizure today. This results from a burst of electrical activity in the brain. A seizure can be due to many causes. It is often not possible to determine the exact cause of a seizure from a single exam and further testing may be needed. Having one seizure does not mean that you will continue to have seizures. However, until the cause of your seizure is known, it is best to assume that another seizure is possible. Home Care: For This Seizure: Since seizures are not predictable, you must avoid doing anything that might cause danger to you or others if you have another one. Therefore, do not drive a car, ride a bike or operate dangerous equipment, do not take a bath alone (use a shower instead), and do not swim alone until your doctor says that you are no longer in danger of having another seizure. Tell your close friends and relatives about your seizure and teach them what to do for you if it happens again. If you were prescribed a medicine to prevent seizures, take it exactly as directed. It does not work when taken on an "as needed" basis. Missing doses will increase the risk of having another seizure. For Future Seizures: If You Are Alone: If you feel a seizure coming on, the best thing to do is to lie down on a bed or on the floor with something soft under your head. Lie on your side, not on your back. This will prevent falling and permit drainage of fluid from the mouth to prevent choking. Be sure that you are clear of any objects that might injure you during the seizure. Call for help (911) if there is time. If Someone Is With You: If someone is with you before the seizure, they should help you get in a safe position and call for help (911). They should not try to force anything in your mouth once the seizure has begun. Doing this may cause injury to your teeth or jaw. After a seizure, you may be drowsy or confused. The person should remain with you until you are fully awake again. They should not offer anything to eat or drink during that time. Call 911 or go to the emergency department for further evaluation. Follow Up with your doctor as directed by our staff. Additional tests (brain wave tests or brain scans) may be ordered to help determine the cause of your seizure. Note: For the safety of yourself and others on the road, certain states require that the treating doctor inform the Public Health Department of any adult who is treated for a seizure and is at risk of further seizures. In this case, the Department of Motor Vehicles (DMV) will be notified and a restriction will be placed on your drivers license until a doctor gives you medical clearance to drive again. Contact your treating doctor to find out if your state requires the reporting of patients with a seizures condition. Get Prompt Medical Attention if any of the following occur: Another seizure Fever over 100.4F (38.0C) Unusual irritability, drowsiness or confusion Worsening headache or neck pain You have been given the following additional information: Seizure, New Onset, Unk Cause [Adult] (Electronically signed by Juvenal Peres DO 10/30/2016 8:51)
--- NOTE | 2016-10-30 08:52 | ED MED RECONCILIATION SUMMARY ---
Patient: JOANIE REYES II Medication Reconciliation Report [facility] VisitID: [id number] [address] [place] [address] 36y, M Registration Date/Time: 10/30/2016 Weight: 53.5 kg Height/Length: 65 in. BMI: 19.7 ALLERGIES: No Known Drug Allergy The patient's Home Medications are listed below: NONE. The source(s) of the original Home Medication information: patient The following Medications were given to the patient in the Emergency Department: IV NS IV Fluids bolus 0, then 1000 mL/hr, administered: 10/30/2016 6:02:00 AM Ativan [IVP] IVP 1 mg, administered: 10/30/2016 6:11:00 AM The following Medications were prescribed to the patient: Keppra 500 mg: take 1 tablet orally every 12 hours. Dispense thirty (30). No refills. Substitution is permissible. -- Juvenal Peres,
--- NOTE | 2016-10-30 08:52 | ED MAR SUMMARY ---
..... Medication Administration Record [facility] [address] [place] [address] Patient: JOANIE REYES Visit ID: [id number] 36y, M Weight: 53.5 kg Height/Length: 65 in BMI: 19.7 ALLERGIES: No Known Drug Allergy Start 06:02 10/30/2016 Ronnell Foreman RTaryn Medication Administered: IV NS (SALINE), Dose: IV Fluids over 60 minute(s), Rate: 1000 mL/hr, Dispensed: 1000 mL bag, Site: #1 left AC. Medication Ordered: IV NS : initial bolus 1000 mL (1000 mL/hr), then 250 mL/hr for X4 (NOW). Given 06:11 10/30/2016 Scott Magana RTrevon. Medication Administered: ATIVAN [IVP] (LORAZEPAM), Dose: 1 mg IVP over 2 minute(s), Site: #1 left AC. Medication Ordered: Ativan IV 1 mg (HIGH ALERT MEDICATION, NOW).
--- NOTE | 2016-10-30 08:52 | ED MED RECONCILIATION SUMMARY ---
Patient: JOANIE REYES II Medication Reconciliation Report [facility] VisitID: [id number] [address] [place] [address] 36y, M Registration Date/Time: 10/30/2016 Weight: 53.5 kg Height/Length: 65 in. BMI: 19.7 ALLERGIES: No Known Drug Allergy The patient's Home Medications are listed below: NONE. The source(s) of the original Home Medication information: patient The following Medications were given to the patient in the Emergency Department: IV NS IV Fluids bolus 0, then 1000 mL/hr, administered: 10/30/2016 6:02:00 AM Ativan [IVP] IVP 1 mg, administered: 10/30/2016 6:11:00 AM The following Medications were prescribed to the patient: Keppra 500 mg: take 1 tablet orally every 12 hours. Dispense thirty (30). No refills. Substitution is permissible. -- Juvenal Peres,
--- NOTE | 2016-10-30 08:52 | ED MAR SUMMARY ---
..... Medication Administration Record [facility] [address] [place] [address] Patient: JOANIE REYES Visit ID: [id number] 36y, M Weight: 53.5 kg Height/Length: 65 in BMI: 19.7 ALLERGIES: No Known Drug Allergy Start 06:02 10/30/2016 Ronnell Foreman RTaryn Medication Administered: IV NS (SALINE), Dose: IV Fluids over 60 minute(s), Rate: 1000 mL/hr, Dispensed: 1000 mL bag, Site: #1 left AC. Medication Ordered: IV NS : initial bolus 1000 mL (1000 mL/hr), then 250 mL/hr for X4 (NOW). Given 06:11 10/30/2016 Scott Magana RTrevon. Medication Administered: ATIVAN [IVP] (LORAZEPAM), Dose: 1 mg IVP over 2 minute(s), Site: #1 left AC. Medication Ordered: Ativan IV 1 mg (HIGH ALERT MEDICATION, NOW).
== END 2016-10-30 08:44 | disposition home or self-care (01) ==
LOC: ED SRH 05:42
DX: G40.509 Epileptic seizures related to external causes, not intractable, without status epilepticus (principal); F11.188 Opioid abuse with other opioid-induced disorder; F15.188 Other stimulant abuse with other stimulant-induced disorder; F12.188 Cannabis abuse with other cannabis-induced disorder; R94.5 Abnormal results of liver function studies; J45.909 Unspecified asthma, uncomplicated; F17.210 Nicotine dependence, cigarettes, uncomplicated
CPT/HCPCS: 90100; 90616; 91320; 91556; 92010; 92530; 92610; 92720; 93140; 94060; 95059